=== PATIENT | male | born 1980 | race African-American/Black ===

== ENCOUNTER 2025-01-01 12:51 | Emergency (ER) | payer OTHER ==
[2025-01-01] MEDS ORDERED: HYDROcodone/Acetaminophen 10/325 mg Tablet ONE (14:27)
== END 2025-01-01 14:34 | disposition home or self-care (01) ==
LOC: CSHERS 12:51
DX: S89.92XA Unspecified injury of left lower leg, initial encounter (principal); I10 Essential (primary) hypertension; X50.0XXA Overexertion from strenuous movement or load, initial encounter
CPT/HCPCS: 99283